=== PATIENT | male | born 1965 | race Caucasian/White ===

== ENCOUNTER 2019-04-22 15:40 | Inpatient (IN) ==
--- NOTE | 2019-04-22 16:05 | Emergency Department Note ---
Disposition Clinical Impression: NSTEMI (non-ST elevated myocardial infarction) Disposition: Admitted As Inpatient Condition: Fair Time of Disposition: 00:34 General Adult HPI - General Chief complaint: ED Chest Pain Stated complaint: Not feeling well Time Seen by Provider: 04/22/19 15:51 Source: patient Limitations: no limitations - History of Present Illness Pain Scale: 10 - Related Data Home Medications Medication Instructions Recorded Confirmed Bupropion HCl [Wellbutrin Xl] 300 mg PO QAM 02/14/16 04/22/19 Cyanocobalamin (Vitamin B-12) 2,000 mcg PO DAILY 02/14/16 04/22/19 [Vitamin B12] Dextroamphetamine/Amphetamine 30 mg PO BID 02/14/16 04/22/19 [Adderall 20 mg Tablet] Gabapentin [Neurontin] 800 mg PO BID 02/14/16 04/22/19 Metoprolol [Lopressor] 100 mg PO BID 02/14/16 04/22/19 Esomeprazole Magnesium [Nexium] 40 mg PO BID 04/22/19 04/22/19 Loratadine [Claritin] 10 mg PO DAILY 04/22/19 04/22/19 Melatonin 10 mg PO HS 04/22/19 04/22/19 Tamsulosin HCl [Flomax] 0.4 mg PO DAILY 04/22/19 04/22/19 Venlafaxine XR (24 HR) [Effexor XR] 37.5 mg PO BID 04/22/19 04/22/19 carBAMazepine [Tegretol] 400 mg PO BID 04/22/19 04/22/19 diazePAM [Valium] 5 mg PO BID 04/22/19 04/22/19 Previous Rx's Medication Instructions Recorded Aspirin 81 mg PO DAILY #30 tab.chew 02/16/16 Allergies Allergy/AdvReac Type Severity Reaction Status Date / Time No Known Allergies Allergy Verified 04/22/19 17:55 Past Medical History - Past Medical History Medical history: Reports: hyperlipidemia Psychiatric history: Reports: bipolar, depression - Social History Smoking Status: Former smoker Smokeless Tobacco Status: No Alcohol use: Reports: none Drug use: Reports: none Physical Exam - General Limitations: no limitations General appearance: alert, in no apparent distress Course Vital Signs Temperature 97.7 F 04/22/19 15:45 Pulse Rate 117 04/22/19 15:45 Respiratory Rate 18 04/22/19 15:45 Blood Pressure 115/75 04/22/19 15:45 O2 Sat by Pulse Oximetry 93 04/22/19 15:45 Temperature 98.1 F 04/22/19 22:18 Pulse Rate 78 04/22/19 22:18 Respiratory Rate 16 04/22/19 22:18 Blood Pressure 133/86 04/22/19 22:18 O2 Sat by Pulse Oximetry 95 04/22/19 22:18 Oxygen Delivery Oxygen Delivery Room Air Medical Decision Making - Lab Data Result diagrams: 04/22/19 16:06 04/22/19 16:06 Lab Results 04/22/19 04/22/19 04/22/19 Range/Units 16:06 16:06 16:06 WBC 6.8 (4.3-11.1) K/mcL RBC 4.70 (4.19-5.50) M/mcL Hgb 14.1 (12.9-16.9) g/dL Hct 42.9 (37.5-50.1) % MCV 91.3 (83.0-100.0) fL MCH 30.0 (28.0-33.3) pg MCHC 32.9 (31.6-35.5) g/dL RDW 14.6 H (11.5-14.5) % Plt Count 248 (140-400) K/mcL MPV 9.4 (9.4-12.4) fL Immature Gran % 0.1 (0-4) % Seg Neutrophils % 70.4 % Lymphocytes % 16.7 % Monocytes % 8.7 % Eosinophils % 3.4 % Basophils % 0.7 % Neutrophils # 4.7 (1.6-8.9) K/mcL Lymphocytes # 1.1 (0.6-4.6) K/mcL Monocytes # 0.6 (0.0-1.3) K/mcL Eosinophils # 0.2 (0.0-0.6) K/mcL Basophils # 0.1 (0.0-0.2) K/mcL PT 10.3 (9.4-12.1) Seconds INR 0.9 APTT 31.3 (26.0-36.0) Seconds D-Dimer (0-500) ng/mLFEU Heparin Anti-Xa, Unfract (0.30-0.70) IU/mL Sodium 138 (136-145) mEq/L Potassium 4.3 (3.5-5.1) mEq/L Chloride 103 (98-107) mEq/L Carbon Dioxide 26 (23-29) mEq/L BUN 17 (6-20) mg/dL Creatinine 1.26 (0.70-1.30) mg/dL Est GFR ( Amer) > 60 (> 60) Est GFR (Non-Af Amer) > 60 (> 60) BUN/Creatinine Ratio 13 (6-26) Glucose 92 (70-105) mg/dL Calculated Osmolality 287 (280-300) Lactic Acid (0.5-2.2) mmol/L Calcium 9.7 (8.6-10.3) mg/dL Troponin I 0.06 H* (< 0.04) ng/mL 04/22/19 04/22/19 04/22/19 Range/Units 16:06 16:06 16:10 WBC (4.3-11.1) K/mcL RBC (4.19-5.50) M/mcL Hgb (12.9-16.9) g/dL Hct (37.5-50.1) % MCV (83.0-100.0) fL MCH (28.0-33.3) pg MCHC (31.6-35.5) g/dL RDW (11.5-14.5) % Plt Count (140-400) K/mcL MPV (9.4-12.4) fL Immature Gran % (0-4) % Seg Neutrophils % % Lymphocytes % % Monocytes % % Eosinophils % % Basophils % % Neutrophils # (1.6-8.9) K/mcL Lymphocytes # (0.6-4.6) K/mcL Monocytes # (0.0-1.3) K/mcL Eosinophils # (0.0-0.6) K/mcL Basophils # (0.0-0.2) K/mcL PT (9.4-12.1) Seconds INR APTT (26.0-36.0) Seconds D-Dimer 294 (0-500) ng/mLFEU Heparin Anti-Xa, Unfract 0.07 L (0.30-0.70) IU/mL Sodium (136-145) mEq/L Potassium (3.5-5.1) mEq/L Chloride (98-107) mEq/L Carbon Dioxide (23-29) mEq/L BUN (6-20) mg/dL Creatinine (0.70-1.30) mg/dL Est GFR ( Amer) (> 60) Est GFR (Non-Af Amer) (> 60) BUN/Creatinine Ratio (6-26) Glucose (70-105) mg/dL Calculated Osmolality (280-300) Lactic Acid 1.7 (0.5-2.2) mmol/L Calcium (8.6-10.3) mg/dL Troponin I (< 0.04) ng/mL Critical Care Time Critical Care Time: Yes Total Critical Care Time: 30 Attestation: The high probability of a clinically significant, sudden or life threatening deterioration of the [] system(s) required my full and direct attention, intervention and personal management. The aggregate critical care time was [] minutes. This time is in addition to time spent performing reported procedures but includes the following: [] Data Review and interpretation [] Patient assessment and monitoring of vital signs [] Documentation [] Medication orders and management Attestation Statement - Attestation Attestation: I reviewed the residents documentation and agree with the residents assessment and plan of care. I have personally had face to face time with the patient. (Brief History, Brief Exam, and MDM) I personally supervised and was present for the bansal/critical portions of the following procedures completed by the imelda tadeo: (add procedures performed here). [id number] time provided Triage note and vital signs reviewed by me. I attest to supervised the resident physician's interpretation of the ECG. Patient evaluated in conjunction with the resident physician Dr. Hager
--- NOTE | 2019-04-22 16:13 | Emergency Department Note ---
Disposition Clinical Impression: NSTEMI (non-ST elevated myocardial infarction) Disposition: Admitted As Inpatient Condition: Fair Forms: ED Satisfaction Letter Time of Disposition: 17:11 General Adult HPI - General Chief complaint: ED Chest Pain Stated complaint: Not feeling well Time Seen by Provider: 04/22/19 15:51 Source: patient Mode of arrival: ambulatory Limitations: no limitations Nursing Notes Reviewed: Yes Vital Signs Reviewed: Yes - History of Present Illness HPI Narrative: Patient is a 53-year-old male that presents emergency Department with reports of generally not feeling well. Patient states that he is also been having chest pain, shortness of breath, sweatiness and belching over the past 2-3 days. Patient states this is very similar to when he had a prior heart attack and stent placement. Patient states that was approximately one year ago. Patient also states that he does have a history of multiple blood clots throughout his body including blood clot in his lung. Patient states that he started to become concerned when he had repeat symptoms of his prior cardiac event. Patient states that he has not had any vomiting, diarrhea or abdominal pain. Patient also states that he was switched from Klonopin to Valium approximately one week ago and since then has not been feeling like his usual self. Patient states that the pain is located in the left side of his chest and will move across to the right and into his right arm. Patient also states that he has increased pain when he takes deep breath. Pain Scale: 10 - Related Data Home Medications Medication Instructions Recorded Confirmed Bupropion HCl [Wellbutrin Xl] 300 mg PO QAM 02/14/16 02/14/16 Cyanocobalamin (Vitamin B-12) 2,000 mcg PO DAILY 02/14/16 02/14/16 [Vitamin B12] Dextroamphetamine/Amphetamine 20 mg PO BID 02/14/16 02/14/16 [Adderall 20 mg Tablet] Duloxetine HCl [Cymbalta] 60 mg PO HS 02/14/16 02/14/16 Esomeprazole Magnesium [Nexium] 40 mg PO BID 02/14/16 02/14/16 Gabapentin [Neurontin] 800 mg PO HS 02/14/16 02/14/16 Metoprolol [Lopressor] 100 mg PO BID 02/14/16 02/14/16 clonazePAM [Klonopin] 1 mg PO TID 02/14/16 02/14/16 lamoTRIgine [Lamictal] 100 mg PO QAM 02/14/16 02/14/16 lamoTRIgine [Lamictal] 200 mg PO HS 02/14/16 02/14/16 Previous Rx's Medication Instructions Recorded Albuterol Sulfate [Ventolin Hfa] 18 gm IH Q4HR PRN #1 hfa.aer.ad 02/16/16 Aspirin 81 mg PO DAILY #30 tab.chew 02/16/16 Allergies Allergy/AdvReac Type Severity Reaction Status Date / Time No Known Allergies Allergy Verified 02/14/16 15:22 All systems ED: reviewed and negative except as stated. Constitutional: Denies: fever Cardiovascular: Reports: chest pain Respiratory: Reports: dyspnea Gastrointestinal: Reports: nausea. Denies: abdominal pain, vomiting, diarrhea Musculoskeletal: Denies: neck pain Neurological: Denies: weakness, numbness, paresthesias Past Medical History - Past Medical History Medical history: Reports: hyperlipidemia Psychiatric history: Reports: bipolar, depression - Social History Smoking Status: Former smoker Smokeless Tobacco Status: No Alcohol use: Reports: none Drug use: Reports: none Physical Exam - General Limitations: no limitations General appearance: alert, in no apparent distress - Head Head exam: atraumatic, normocephalic - Eye Eye exam: Present: normal appearance, EOMI - Neck Neck exam: Present: normal inspection, full ROM, trachea midline - Respiratory Respiratory exam: Present: normal lung sounds bilaterally. Absent: respiratory distress, wheezes - Cardiovascular Cardiovascular exam: Present: normal rhythm, tachycardia, normal heart sounds, +S1, +S2 - Abdominal Exam Abdominal exam: Present: soft, Non-Tender, normal bowel sounds - Neurological Exam Neurological exam: Present: alert, oriented X3 - Psychiatric Psychiatric exam: Present: normal affect, normal mood - Skin Skin exam: Present: warm, dry, intact Course Vital Signs Temperature 97.7 F 04/22/19 15:45 Pulse Rate 117 04/22/19 15:45 Respiratory Rate 18 04/22/19 15:45 Blood Pressure 115/75 04/22/19 15:45 O2 Sat by Pulse Oximetry 93 04/22/19 15:45 Temperature 97.7 F 04/22/19 15:45 Pulse Rate 106 04/22/19 16:17 Respiratory Rate 18 04/22/19 16:17 Blood Pressure 148/87 04/22/19 16:17 O2 Sat by Pulse Oximetry 98 04/22/19 16:17 Oxygen Delivery Oxygen Delivery Room Air Medical Decision Making - MDM Narrative Medical decision making narrative: Due the patient's into the emergency Department with reports of chest pain, shortness of breath and diaphoresis in the setting of prior cardiac history and blood clots obtain basic laboratory testing including a d-dimer. The patient was deemed a positive sepsis screen at triage. However the patient was only tachycardic. Was not tachypenic, hypotensive, febrile and no white count had been obtained at that time to identify the patient to be a positive sepsis screen. She does not have an elevated white count. Patient does not have an infectious etiology. Do not feel the patient is septic. Patient did have an elevated troponin of 0.06. Patient given aspirin, nitroglycerin was started on heparin drip. Patient will be admitted hospital for an STEMI. Spoke the admitting hospitalist Dr. morton and he is except the patient their service. Patient be admitted to this time for further evaluation and management. - Medical Records Medical records reviewed: Yes I reviewed the patient's medical records. - Lab Data Lab results reviewed: Yes I reviewed the patient's lab results. Result diagrams: 04/22/19 16:06 04/22/19 16:06 Lab Results 04/22/19 04/22/19 04/22/19 Range/Units 16:06 16:06 16:06 WBC 6.8 (4.3-11.1) K/mcL RBC 4.70 (4.19-5.50) M/mcL Hgb 14.1 (12.9-16.9) g/dL Hct 42.9 (37.5-50.1) % MCV 91.3 (83.0-100.0) fL MCH 30.0 (28.0-33.3) pg MCHC 32.9 (31.6-35.5) g/dL RDW 14.6 H (11.5-14.5) % Plt Count 248 (140-400) K/mcL MPV 9.4 (9.4-12.4) fL Immature Gran % 0.1 (0-4) % Seg Neutrophils % 70.4 % Lymphocytes % 16.7 % Monocytes % 8.7 % Eosinophils % 3.4 % Basophils % 0.7 % Neutrophils # 4.7 (1.6-8.9) K/mcL Lymphocytes # 1.1 (0.6-4.6) K/mcL Monocytes # 0.6 (0.0-1.3) K/mcL Eosinophils # 0.2 (0.0-0.6) K/mcL Basophils # 0.1 (0.0-0.2) K/mcL PT 10.3 (9.4-12.1) Seconds INR 0.9 APTT 31.3 (26.0-36.0) Seconds D-Dimer (0-500) ng/mLFEU Sodium 138 (136-145) mEq/L Potassium 4.3 (3.5-5.1) mEq/L Chloride 103 (98-107) mEq/L Carbon Dioxide 26 (23-29) mEq/L BUN 17 (6-20) mg/dL Creatinine 1.26 (0.70-1.30) mg/dL Est GFR ( Amer) > 60 (> 60) Est GFR (Non-Af Amer) > 60 (> 60) BUN/Creatinine Ratio 13 (6-26) Glucose 92 (70-105) mg/dL Calculated Osmolality 287 (280-300) Lactic Acid (0.5-2.2) mmol/L Calcium 9.7 (8.6-10.3) mg/dL Troponin I 0.06 H* (< 0.04) ng/mL 04/22/19 04/22/19 Range/Units 16:06 16:06 WBC (4.3-11.1) K/mcL RBC (4.19-5.50) M/mcL Hgb (12.9-16.9) g/dL Hct (37.5-50.1) % MCV (83.0-100.0) fL MCH (28.0-33.3) pg MCHC (31.6-35.5) g/dL RDW (11.5-14.5) % Plt Count (140-400) K/mcL MPV (9.4-12.4) fL Immature Gran % (0-4) % Seg Neutrophils % % Lymphocytes % % Monocytes % % Eosinophils % % Basophils % % Neutrophils # (1.6-8.9) K/mcL Lymphocytes # (0.6-4.6) K/mcL Monocytes # (0.0-1.3) K/mcL Eosinophils # (0.0-0.6) K/mcL Basophils # (0.0-0.2) K/mcL PT (9.4-12.1) Seconds INR APTT (26.0-36.0) Seconds D-Dimer 294 (0-500) ng/mLFEU Sodium (136-145) mEq/L Potassium (3.5-5.1) mEq/L Chloride (98-107) mEq/L Carbon Dioxide (23-29) mEq/L BUN (6-20) mg/dL Creatinine (0.70-1.30) mg/dL Est GFR ( Amer) (> 60) Est GFR (Non-Af Amer) (> 60) BUN/Creatinine Ratio (6-26) Glucose (70-105) mg/dL Calculated Osmolality (280-300) Lactic Acid 1.7 (0.5-2.2) mmol/L Calcium (8.6-10.3) mg/dL Troponin I (< 0.04) ng/mL - EKG Data EKG #1 EKG attestation: Yes I reviewed and interpreted this EKG. EKG results narrative: EKG shows a sinus tachycardia at a rate of 120 beats from it, GA interval 18, QRS duration 107, QTc of 387. No evidence of STEMI on EKG. This is compared to a prior EKG on 02/15/16.
[2019-04-22 16:19] LABS: Basophils # 0.1 K/mcL (0.0-0.2); Basophils % 0.7 %; Eosinophils # 0.2 K/mcL (0.0-0.6); Eosinophils % 3.4 %; Hematocrit 42.9 % (37.5-50.1); Hemoglobin 14.1 g/dL (12.9-16.9); Immature Granulocytes % 0.1 % (0-4); Lymphocytes # 1.1 K/mcL (0.6-4.6); Lymphocytes % 16.7 %; Mean Corpuscular HGB Conc 32.9 g/dL (31.6-35.5); Mean Corpuscular Volume 91.3 fL (83.0-100.0); Mean Platelet Volume 9.4 fL (9.4-12.4); Monocytes # 0.6 K/mcL (0.0-1.3); Monocytes % 8.7 %; Neutrophils # 4.7 K/mcL (1.6-8.9); Platelet Count 248 K/mcL (140-400); Red Cell Distribution Width 14.6 % (11.5-14.5); Segmented Neutrophils % 70.4 %; White Blood Count 6.8 K/mcL (4.3-11.1)
[2019-04-22 16:30] LABS: INR 0.9; Prothrombin Time 10.3 Seconds (9.4-12.1)
[2019-04-22 16:32] LABS: Activated Partial Thrombo Time 31.3 Seconds (26.0-36.0)
[2019-04-22 16:40] LABS: BUN/Creatinine Ratio 13 (6-26); Blood Urea Nitrogen 17 mg/dL (6-20); Calcium 9.7 mg/dL (8.6-10.3); Carbon Dioxide 26 mEq/L (23-29); Chloride 103 mEq/L (98-107); Glucose 92 mg/dL (70-105); Osmolality,Calculated 287 (280-300); Potassium 4.3 mEq/L (3.5-5.1); Sodium 138 mEq/L (136-145); eGFR For African Americans > 60 (> 60); eGFR For Non-African Americans > 60 (> 60)
[2019-04-22 16:46] LABS: Troponin I 0.06 ng/mL (< 0.04)
[2019-04-22] MEDS ORDERED: Aspirin 81 MG TAB.CHEW PO ONE (16:50)
[2019-04-22] MEDS ORDERED: *HR* Heparin 5,000 UNIT/ML VIAL IVP PRN ×2 (16:59)
[2019-04-22] MEDS ORDERED: *HR* Heparin 5,000 UNIT/ML VIAL IVP ONE (16:59)
[2019-04-22] MEDS ORDERED: Ondansetron ODT 4 MG TAB.RAPDIS SL PRN (17:25)
[2019-04-22] MEDS ORDERED: Naloxone 0.4 MG/ML INJ IVP PRN (17:25)
[2019-04-22] MEDS ORDERED: *HR* Promethazine 25 MG/ML VIAL IVP PRN (17:25)
[2019-04-22] MEDS: Nitroglycerin 0.4 MG TAB.SUBL SL SCH ×3 (17:33→22:03)
[2019-04-22] MEDS: Heparin 25,000 UNIT/250 ML D5W 25,000 UNIT/250 ML IV.SOLN IVC SCH (17:42)
--- NOTE | 2019-04-22 18:13 | Internal Med History&Physical ---
Date of Encounter: 04/22/19 Time of Encounter: 18:00 Internal Medicine - H&P: HPI Chief complaint: Chest pressure Admitted From: Home Plans for Post Hospital Care: Home History of present illness: Mr. Esqueda is a 53 year old male with hx of CAD s/p PCI with stent in 2018 presents with chest pressure. Patient says that 1 hour prior to presentation he began to feel chest pressure that admits to feeling generalized malaise over the last 2-3 days. Today was having chest pressure similar to his symptoms when he had a heart attack in 2018. Went to his mom's house and started feeling short of breath and broke out in a sweat so called EMS. During time of interview, patient endorsed continued chest pressure and shortness of breath. Denies orthopnea, PND, or lower extremity edema. Pain on the left side of his chest and radiating down his right arm. Not relieved by nitroglycerin. In the ED, sinus tach to 122. All other vitals stable. Troponin elevation to 0.06. EKG without ischemic changes. Admitted to medicine. Past Med Surg Social Fam HX - Past Medical History Medical history: hyperlipidemia Additional medical history: Neuropathy. Psychiatric history: bipolar, depression - Social History Smoking Status: Former smoker Smokeless Tobacco Status: No Alcohol use: none Drug use: none - Family History Mother Living Status: Still Living Hx Family Respiratory Disorders: Yes Father Living Status: Still Living Hx Family Cardiac Disorders: Yes (Tripple Bi-pass) Internal Medicine - H&P: Meds Bupropion HCl [Wellbutrin Xl] 300 mg PO QAM 02/14/16 [History] Cyanocobalamin (Vitamin B-12) [Vitamin B12] 2,000 mcg PO DAILY 02/14/16 [History] Dextroamphetamine/Amphetamine [Adderall 20 mg Tablet] 20 mg PO BID 02/14/16 [History] Duloxetine HCl [Cymbalta] 60 mg PO HS 02/14/16 [History] Esomeprazole Magnesium [Nexium] 40 mg PO BID 02/14/16 [History] Gabapentin [Neurontin] 800 mg PO HS 02/14/16 [History] Metoprolol [Lopressor] 100 mg PO BID 02/14/16 [History] clonazePAM [Klonopin] 1 mg PO TID 02/14/16 [History] lamoTRIgine [Lamictal] 100 mg PO QAM 02/14/16 [History] lamoTRIgine [Lamictal] 200 mg PO HS 02/14/16 [History] Albuterol Sulfate [Ventolin Hfa] 18 gm IH Q4HR PRN #1 hfa.aer.ad 02/16/16 [Rx] Aspirin 81 mg PO DAILY #30 tab.chew 02/16/16 [Rx] Allergy/AdvReac Type Severity Reaction Status Date / Time No Known Allergies Allergy Verified 04/22/19 17:55 All Systems PM: A 10-system review of systems was performed and is negative for pertinent findings except as documented above in the HPI. Review of systems: General: Fevers / Chills / Weight loss / Night sweats Eyes: Blurry Vision / Change in Vision HENT: Ear Pain / Ear Drainage / Rhinorrhea / Throat Pain / Lymphadenopathy Cardiovascular: Chest Pain / Palpatations / Orthopnea / MCKENNA / Weight gain Lungs: Dyspnea / Wheezing / Cough / Sputum production / Pleurisy Abdomen: Abdomen pain / Abdominal distention / Nausea / Vomiting / Diarrhea / Const : Dysuria / Urinary Frequency / Urinary Urgency / Hematuria Extremities: LE edema / Ext pain / Ext erythema Skin: Rashes / Abrasions / Contusions Psych: Hallucinations / Anxiety / Depression Neuro: Weakness / Numbness / Tingling / Facial Droop / Dysphagia - Constitutional Vitals: Temp Pulse Resp BP Pulse Ox 97.7 F 122 16 101/80 93 04/22/19 15:45 04/22/19 17:53 04/22/19 17:53 04/22/19 17:53 04/22/19 17:53 Exam: General: Ill-appearing and in no acute distress HEENT: No erythema of posterior pharynx. No exudates. Lymphatics: No mandibular or cervical lymphadenopathy Cardiovascular: RRR. No murmurs. No chest wall tenderness. Lungs: Clear to auscelltation bilaterally. Regular chest rise. Abdomen: Non-tender. No rebound or gaurding. Nl bowel sounds. Extremities: No edema. 2+ pulses radial and pedal pulses Skin: No rahses, abrasions, or contusions. Nl cap refill. Psych: Nl attention. A&Ox3 Neuro: key maker II-XII intact. 5/5 strength. Sensation to light touch and pinprick intact. Internal Med - H&P Results - Labs CBC & Chem 7: 04/22/19 16:06 04/22/19 16:06 Labs: Short CBC 04/22/19 Range/Units 16:06 WBC 6.8 (4.3-11.1) K/mcL Hgb 14.1 (12.9-16.9) g/dL Hct 42.9 (37.5-50.1) % Plt Count 248 (140-400) K/mcL Neutrophils # 4.7 (1.6-8.9) K/mcL BMP 04/22/19 16:06 Sodium 138 Potassium 4.3 Chloride 103 Carbon Dioxide 26 BUN 17 Creatinine 1.26 Glucose 92 Calcium 9.7 Cardiac Enzymes 04/22/19 Range/Units 16:06 Troponin I 0.06 H* (< 0.04) ng/mL - Impressions ITS Impressions Chest X-Ray 04/22/19 15:53 IMPRESSION: No acute airspace disease identified. D/ / Ryan Elizondo / Ryan Elizondo Interpreting Provider: Ryan Elizondo - Assessment and Plan (1) NSTEMI (non-ST elevated myocardial infarction) Current Visit: Yes Status: Acute Assessment and plan: Patient with hx of CAD s/p PCI with stent in 2018 presents with chest pressure in the setting of sinus tachycardia, unremarkable physical exam, she will elevation to 0.06, and EKG without ischemic changes. -Initial concern for PE given sinus tachycardia but d-dimer only to 294. -Likely another primary ischemic event, NSTEMI type I, in a high-risk patient -Started on heparin drip in the ED and currently hemodynamically stable PLAN: - Consult to cardiology - will make NPO@MN for likely LHC - Troponin q6 - Heparin ggt - S/p ASA 324mg. ASA 81mg qd thereafter - Metoprolol tartrate 50mg q6 (home dose 100mg bid) - Nitrolycerin and morphine prn for chest pain/pressure - Will need to request records from primary turning machine operator helper (2) CAD (coronary artery disease) Current Visit: Yes Status: Acute Assessment and plan: Had an IN in 2018 status post PCI with stent placement. Follows with a turning machine operator helper at an outside facility. - Will need to request records from outside facility Qualifiers: Coronary Disease-Associated Artery/Lesion type: pic[place]une artery [place] vs. transplanted heart: picayune heart Associated angina: without angina Qualified Code(s): I25.10 - Atherosclerotic heart disease of pic[place] coronary artery without angina pectoris (3) Sinus tachycardia Current Visit: Yes Status: Acute Assessment and plan: Initial concern for PE given sinus tachycardia but d-dimer only to 294. - Metoprolol 50mg q6 for NSTEMI management - Telemetry (4) Medical non-compliance Current Visit: Yes Status: Acute Assessment and plan: Unclear how complaint patient has been with cardiac package of medications. Since he has not been taking a statin. - Encourage compliance
[2019-04-22] MEDS ORDERED: Morphine Sulfate 2 MG/ML SYRINGE IVP PRN (18:21)
[2019-04-22] MEDS ORDERED: Melatonin 3 MG TABLET PO PRN (20:14)
[2019-04-22] MEDS: carBAMazepine 200 MG TABLET PO SCH (22:16)
[2019-04-22] MEDS: Gabapentin 400 MG CAPSULE PO SCH (22:17)
[2019-04-22] MEDS: diazePAM 5 MG TABLET PO PRN (22:17)
[2019-04-23 06:11] LABS: Basophils # 0.1 K/mcL (0.0-0.2); Basophils % 1.4 %; Eosinophils # 0.3 K/mcL (0.0-0.6); Eosinophils % 5.9 %; Hematocrit 40.6 % (37.5-50.1); Hemoglobin 13.2 g/dL (12.9-16.9); Immature Granulocytes % 0.3 % (0-4); Mean Corpuscular HGB Conc 32.5 g/dL (31.6-35.5); Mean Corpuscular Hemoglobin 29.4 pg (28.0-33.3); Mean Corpuscular Volume 90.4 fL (83.0-100.0); Mean Platelet Volume 9.5 fL (9.4-12.4); Monocytes # 0.6 K/mcL (0.0-1.3); Monocytes % 10.1 %; Neutrophils # 2.8 K/mcL (1.6-8.9); Platelet Count 228 K/mcL (140-400); Red Blood Count 4.49 M/mcL (4.19-5.50); Segmented Neutrophils % 48.3 %; White Blood Count 5.7 K/mcL (4.3-11.1)
[2019-04-23 06:32] LABS: BUN/Creatinine Ratio 16 (6-26); Blood Urea Nitrogen 18 mg/dL (6-20); Calcium 10.1 mg/dL (8.6-10.3); Carbon Dioxide 27 mEq/L (23-29); Chloride 106 mEq/L (98-107); Glucose 97 mg/dL (70-105); Magnesium 2.3 mg/dL (1.6-2.6); Osmolality,Calculated 296 (280-300); Potassium 4.3 mEq/L (3.5-5.1); Sodium 142 mEq/L (136-145); eGFR For African Americans > 60 (> 60); eGFR For Non-African Americans > 60 (> 60)
--- NOTE | 2019-04-23 08:10 | Cardiology Consult Note ---
<Cami Bruce - Last Filed: 04/23/19 10:39> Date of Encounter: 04/23/19 Time of Encounter: 10:15 Assessment and Plan (1) NSTEMI (non-ST elevated myocardial infarction) Current Visit: Yes Status: Acute Patient had mildly elevated troponins 0.06 > 0.04 > 0.03. -Had previous cardiac catheterization approximately a year ago in [place] -There is a records request ordered for information regarding previous heart cath. -Per patient, there was an unstented coronary artery seen on last cath which had 80% blockage. (2) Essential hypertension Current Visit: No Status: Chronic Patient's blood pressure has been elevated this morning, at 180/110 and 178/118. Received morning dose of metoprolol 50 mg. Continuing to monitor. Discussion w patient/family: The assessment and plan as outlined above was discussed with the patient and/or family members who expressed understanding and agreement. All questions were answered. Thank you for involving us in the care of your patient. Please call with any questions. History of Present Illness Consult date: 04/22/19 Requesting physician: Taqueria Worley Consult reason: NSTEMI Chief complaint: chest pressure History of present illness: Mr. Esqueda is a 53 year old male presenting with chest pressure in context of CAD s/p PCI with stent in 2018. He also has a history of multiple blood clots throughout body including pulmonary embolism. He was found to additionally have elevated troponins on presentation. Yesterday evening, he experienced left-sided chest pressure which radiated across to right chest and down right arm; these symptoms were very similar to those he had during his 2018 heart attack. He went to his mother's house and began feeling dyspneic and diaphoretic. After an hour of symptoms, he called EMS. In the ED, he continued to have chest pain which worsened during deep breaths. He denied vomiting, diarrhea, abdominal pain but reported he had been having chest pain, dyspnea, diaphoresis, and increased belching over the previous 2-3 days. He showed an elevated troponin of 0.06 and was given aspirin, nitroglycerin, and was started on a heparin drip. D-dimer was negative. ECG showed sinus tachycardia of 120 bpm. There was no evidence of STEMI on electrocardiogram. CXR showed no acute airspace disease. Patient reported to nurse that nitroglycerin was worsening his chest pain. Troponins are trending downward 0.06 > 0.04 > 0.03. Blood pressure this morning has been elevated at 180/110 > 178/118. Past Med Surg Social Fam HX - Past Medical History Medical history: hyperlipidemia Additional medical history: Neuropathy. Psychiatric history: bipolar, depression - Past Surgical History Additional surgical history: left elbow sx, right knee sx. - Social History Smoking Status: Former smoker Smokeless Tobacco Status: No Alcohol use: none Drug use: none - Family History Mother Living Status: Still Living Hx Family Respiratory Disorders: Yes Father Living Status: Still Living Hx Family Cardiac Disorders: Yes (Tripple Bi-pass) Medications and Allergies Bupropion HCl [Wellbutrin Xl] 300 mg PO QAM 02/14/16 [History] Cyanocobalamin (Vitamin B-12) [Vitamin B12] 2,000 mcg PO DAILY 02/14/16 [History] Dextroamphetamine/Amphetamine [Adderall 20 mg Tablet] 30 mg PO BID 02/14/16 [History] Gabapentin [Neurontin] 800 mg PO BID 02/14/16 [History] Metoprolol [Lopressor] 100 mg PO BID 02/14/16 [History] Aspirin 81 mg PO DAILY #30 tab.chew 02/16/16 [Rx] Esomeprazole Magnesium [Nexium] 40 mg PO BID 04/22/19 [History] Loratadine [Claritin] 10 mg PO DAILY 04/22/19 [History] Melatonin 10 mg PO HS 04/22/19 [History] Tamsulosin HCl [Flomax] 0.4 mg PO DAILY 04/22/19 [History] Venlafaxine XR (24 HR) [Effexor XR] 37.5 mg PO BID 04/22/19 [History] carBAMazepine [Tegretol] 400 mg PO BID 04/22/19 [History] diazePAM [Valium] 5 mg PO BID 04/22/19 [History] Allergy/AdvReac Type Severity Reaction Status Date / Time No Known Allergies Allergy Verified 04/22/19 17:55 All Systems Review: The remainder of the systems were reviewed and are negative - Constitutional Constitutional: headache(s), no frequent falls - EENT Eyes: blurred vision Ears: bilateral: hearing loss (muffled) - Cardiovascular Cardiovascular: chest pain at rest (radiates to back), chest pain with exertion, diaphoresis, dyspnea at rest, dyspnea on exertion, radiating jaw, neck or arm pain, no leg edema - Respiratory Respiratory: dyspnea - Gastrointestinal Gastrointestinal: constipation, no abdominal pain, no diarrhea, no nausea - Genitourinary Genitourinary: no dysuria - Musculoskeletal Musculoskeletal: back pain - Neurological Neurological: no focal weakness, no numbness, no tingling - Psychiatric Psychiatric: anxiety Physical Examination Vital Signs, Last 4 Hours Temp Pulse Resp BP Pulse Ox 04/23/19 07:34 178/118 04/23/19 07:23 97.5 F L 67 16 180/110 97 Other: GENERAL: alert, answers questions appropriately, in no acute distress EYES: clear sclerae, anicteric, pupils equal and reactive to light HENT: normocephalic, atraumatic. Moist mucosa, some missing teeth. CV: regular rate and rhythm, no murmurs. RESPIRATORY/CHEST: clear to auscultation bilaterally, no wheezing, rhonchi, or rales. Tender to palpation over left upper chest GI: epigastric tenderness. Soft, nondistended. Normal bowel sounds EXTREMITIES: warm, dry. Nonedematous, acyanotic. Peripheral pulses 2+/4. Capilla ry refill <2 sec. Results 04/23/19 05:43 04/23/19 05:43 Lab Results 04/22/19 04/22/19 04/22/19 16:06 16:06 16:06 WBC 6.8 Hgb 14.1 Hct 42.9 Plt Count 248 INR 0.9 APTT 31.3 D-Dimer Sodium 138 Potassium 4.3 Chloride 103 Carbon Dioxide 26 BUN 17 Creatinine 1.26 Glucose 92 Calcium 9.7 Magnesium Troponin I 0.06 H* 04/22/19 04/22/19 04/23/19 16:06 23:39 05:43 WBC 5.7 Hgb 13.2 Hct 40.6 Plt Count 228 INR APTT D-Dimer 294 Sodium Potassium Chloride Carbon Dioxide BUN Creatinine Glucose Calcium Magnesium Troponin I 0.04 H* 04/23/19 04/23/19 05:43 05:43 WBC Hgb Hct Plt Count INR APTT D-Dimer Sodium 142 Potassium 4.3 Chloride 106 Carbon Dioxide 27 BUN 18 Creatinine 1.11 Glucose 97 Calcium 10.1 Magnesium 2.3 Troponin I 0.03 Consult Discharge Plan - Plan Referrals: Negin Lock MD [Primary Care Provider] - <Eryn Read - Last Filed: 04/23/19 11:53> Date of Encounter: 04/23/19 - Attending Attestation I examined this patient and my medical decision-making was reviewed with the Resident Physician. I agree with the documented findings, disposition and treatment plan as described except to the extent set forth below. 53-year-old male recent PCI to his distal RCA a year ago at an outside hospital for an inferior ST elevation myocardial infarction. Patient presents to [facility] with complaints of chest pain similar to what he had prior to his [place]. Patient has mild elevated troponin withchanges on his EKG. Records were obtained from outside hospital and apparently patient has proximal 50% disease in the circumflex with 70-80% apical LAD disease as well. The setting of his episode of chest pain; he had prior to his IL and mild elevation in troponins I do believe an LHC is reasonable. Risks benefits and alternatives were discussed with the patient and he agrees to proceed. Assessment and Plan Discussion w patient/family: The assessment and plan as outlined above was discussed with the patient and/or family members who expressed understanding and agreement. All questions were answered. Thank you for involving us in the care of your patient. Please call with any questions. History of Present Illness History of present illness: Mr. Esqueda is a 53 year old male All Systems Review: The remainder of the systems were reviewed and are negative Physical Examination Vital Signs, Last 4 Hours Temp Pulse Resp BP Pulse Ox 04/23/19 11:07 98.0 F 71 17 138/93 96 Results 04/23/19 05:43 04/23/19 05:43 Lab Results 04/22/19 04/22/19 04/22/19 16:06 16:06 16:06 WBC 6.8 Hgb 14.1 Hct 42.9 Plt Count 248 INR 0.9 APTT 31.3 D-Dimer Sodium 138 Potassium 4.3 Chloride 103 Carbon Dioxide 26 BUN 17 Creatinine 1.26 Glucose 92 Calcium 9.7 Magnesium Troponin I 0.06 H* 04/22/19 04/22/19 04/23/19 16:06 23:39 05:43 WBC 5.7 Hgb 13.2 Hct 40.6 Plt Count 228 INR APTT D-Dimer 294 Sodium Potassium Chloride Carbon Dioxide BUN Creatinine Glucose Calcium Magnesium Troponin I 0.04 H* 04/23/19 04/23/19 05:43 05:43 WBC Hgb Hct Plt Count INR APTT D-Dimer Sodium 142 Potassium 4.3 Chloride 106 Carbon Dioxide 27 BUN 18 Creatinine 1.11 Glucose 97 Calcium 10.1 Magnesium 2.3 Troponin I 0.03
[2019-04-23] MEDS: carBAMazepine 200 MG TABLET PO SCH ×2 (08:30→20:26)
[2019-04-23] MEDS: Gabapentin 400 MG CAPSULE PO SCH ×2 (08:30→20:25)
[2019-04-23] MEDS: Aspirin 81 MG TAB.CHEW PO SCH (08:30)
[2019-04-23] MEDS: Acetaminophen 325 MG TABLET PO PRN (08:30)
[2019-04-23] MEDS: BuPROPion XL (24 HR) 150 MG TABLET PO SCH (08:30)
[2019-04-23] MEDS: diazePAM 5 MG TABLET PO PRN ×2 (08:37→22:02)
[2019-04-23] MEDS ORDERED: Venlafaxine XR (24 HR) 37.5 MG CAP.ER.24H PO SCH (09:00)
[2019-04-23] MEDS: Metoprolol 100 MG TABLET PO SCH ×2 (11:14→20:25)
--- NOTE | 2019-04-23 14:31 | Internal Med Progress Note ---
Hospitalist Progress Note - Encounter Date of Encounter: 04/23/19 Time of Encounter: 11:10 - Subjective Interval History: Patient was seen this morning, he denied any chest pain, shortness of breath or palpitation. He denied nausea/vomiting or abdominal pain. - Exam Vitals: Temp Pulse Resp BP Pulse Ox 98.0 F 71 17 138/93 96 04/23/19 11:07 04/23/19 11:07 04/23/19 11:07 04/23/19 11:07 04/23/19 11:07 Exam: General: Ill-appearing and in no acute distress HEENT: No erythema of posterior pharynx. No exudates. Lymphatics: No mandibular or cervical lymphadenopathy Cardiovascular: RRR. No murmurs. No chest wall tenderness. Lungs: Clear to auscelltation bilaterally. Regular chest rise. Abdomen: Non-tender. No rebound or gaurding. Nl bowel sounds. Extremities: No edema. 2+ pulses radial and pedal pulses Skin: No rahses, abrasions, or contusions. Nl cap refill. Psych: Nl attention. 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 5/5 strength. Sensation to light touch and pinprick intact. - Assessment and Plan (1) NSTEMI (non-ST elevated myocardial infarction) Current Visit: Yes Status: Acute (2) CAD (coronary artery disease) Current Visit: Yes Status: Acute (3) Medical non-compliance Current Visit: Yes Status: Acute (4) Sinus tachycardia Current Visit: Yes Status: Acute - Summary of Assessment and Plan Summary of Assessment and Plan: 53-year-old male with history of CAD status post PCI, ADHD, bipolar disorder who came into the hospital due to chest pain. His symptoms are managed as following: NSTEMI: - Troponin peaked to 0.04, EKG with no acute ischemic changes. Currently pain- free. - On heparin drip, aspirin, BB, Lipitor. Cardiology is consulted, plans for left heart catheterization. bipolar disorder: Continue home medication ADHD: Continue home medication DVT prophylaxis: On heparin drip - Time Spent with Patient Total time spent is greater than 50% in coordination of care (as documented) at patient's floor/unit and/or counseling patient: Plan of Care Discussed with: patient Internal Medicine: Result - Labs CBC & Chem 7: 04/23/19 05:43 04/23/19 05:43 Labs: Short CBC 04/22/19 04/23/19 Range/Units 16:06 05:43 WBC 6.8 5.7 (4.3-11.1) K/mcL Hgb 14.1 13.2 (12.9-16.9) g/dL Hct 42.9 40.6 (37.5-50.1) % Plt Count 248 228 (140-400) K/mcL Neutrophils # 4.7 2.8 (1.6-8.9) K/mcL BMP 04/22/19 04/23/19 16:06 05:43 Sodium 138 142 Potassium 4.3 4.3 Chloride 103 106 Carbon Dioxide 26 27 BUN 17 18 Creatinine 1.26 1.11 Glucose 92 97 Calcium 9.7 10.1 Cardiac Enzymes 04/22/19 04/22/19 04/23/19 Range/Units 16:06 23:39 05:43 Troponin I 0.06 H* 0.04 H* 0.03 (< 0.04) ng/mL - ABG Interpretation ABG results: PT/INR, D-dimer PT 10.3 Seconds (9.4-12.1) 04/22/19 16:06 D-Dimer 294 ng/mLFEU (0-500) 04/22/19 16:06 - Impressions Impressions Chest X-Ray 04/22/19 15:53 IMPRESSION: No acute airspace disease identified. D/ / Ryan Elizondo / Ryan Elizondo Interpreting Provider: Ryan Elizondo Consult Discharge Plan - Plan Referrals: Negin Lock MD [Primary Care Provider] - (2) CAD (coronary artery disease) Qualifiers: Coronary Disease-Associated Artery/Lesion type: [place] artery [place] vs. transplanted heart: [place] heart Associated angina: without angina Qualified Code(s): I25.10 - Atherosclerotic heart disease of [place] coronary artery without angina pectoris
[2019-04-23] MEDS: Heparin 25,000 UNIT/250 ML D5W 25,000 UNIT/250 ML IV.SOLN IVC SCH (15:41)
[2019-04-23] MEDS ORDERED: 0.9 % Sodium Chloride 1,000 ML ONE ×2 (15:49→15:50)
[2019-04-23] MEDS ORDERED: Heparin 1,000 UNITS/500 mL 500 ML ONE (15:49)
[2019-04-23] MEDS ORDERED: *HR* Heparin 10,000 UNIT/10 ML VIAL ONE (15:49)
[2019-04-23] MEDS ORDERED: Nitroglycerin 1,000 MCG/10 ML VIAL IV ONE (15:49)
[2019-04-23] MEDS ORDERED: Verapamil 5 MG/2 ML VIAL ONE (16:42)
[2019-04-23] MEDS ORDERED: *HR* FentaNYL (PF) 100 MCG/2 ML VIAL ONE (16:44)
[2019-04-23] MEDS ORDERED: *HR* Midazolam HCl 2 MG/2 ML VIAL ONE ×2 (16:44→16:57)
--- NOTE | 2019-04-23 16:48 | Pre-Sedation Evaluation ---
Pre-sedation evaluation - Pre-sedation checklist Date of procedure: 04/23/19 Procedure: [facility] Recent Vitals: Last Vital Signs Temp 97.6 F 04/23/19 15:51 Pulse 70 04/23/19 15:51 Resp 16 04/23/19 15:51 BP 146/99 04/23/19 15:51 Pulse Ox 96 04/23/19 15:51 H&P (including ROS) documented in medical record: Yes Previous reaction to sedatives/anesthetics: No Dietary Status: No solid food in preceding 4 hrs and no liquid in preceding 2 hrs Dentition: No loose teeth or bridges ASA Classification *see protocol: CLASS II-Mild systemic disease Plan of Care: Pt appropriate candidate for procedure/moderate/conscious sedation, Risks/benefits of procedure/sedation discussed w/ patient/family Cardiac Registry (Cardio Only) - Functional Capacity Functional Capacity: >=4 METS with symptoms - Clincal Frailty Scale Clinical Frailty Scale: Managing Well
[2019-04-23] MEDS ORDERED: Iopamidol 125 ML INFUS..BTL ONE (17:14)
--- NOTE | 2019-04-23 17:35 | Event Note ---
Date of Encounter: 04/23/19 Time of Encounter: 17:30 - Cardiology Event Note mLAD DAYNA x 1 for FFR+ EF normal. FFR LCx negative. RCA stent patent
--- NOTE | 2019-04-23 18:10 | Invasive Diagnostic Lab Proc ---
Name: Geovanny Esqueda Date of Study: 04/23/2019 Date: 1965 Ht: 72.0in Medical Record#: [id number] Age: 53 Wt: 229.06lb Gender: Male BSA: 2.26 Order #: [id number] BMI: 31.07 Physicians Procedure Physician: Thomas Redman MD, [facility] Referring MD: Referring MD: Staff Name Position Time In Felicitas Estrada RT (R) Monitor 04:47 PM Meng Manzano RT (R) Scrub 04:47 PM Indications Indication Non-Stemi Procedures Performed Procedure L HRT ARTERY/VENTRICLE ANGIO IV Doppler BLD Flow 1st Vessel IV Doppler BLD Flow Ad'l Vessel PRQ CARD DAYNA STENT W/ANGIO 1 VSL Pre-Procedure Checklist Informed consent is complete signed and on chart. H&P is on chart. ID band is on and ID verified with patient. Patient NPO for procedure The procedure was described for the patient and questions were answered. Blood Pressure: 138/93 ECG is on chart. Rhythm: NSR Plan of Care Patient will tolerate the procedure without complications. Adequate level of comfort will be maintained. Hemodynamics will remain stable Patient will recover from procedure without complications. Respiratory function will be maintained. Cardiac rhythm will remain stable. Patient temperature will be maintained. Patient and/or family have verbalized understanding of the procedure. Patient Education Chief Complaint/Reason for Test: Cardiac Cath Developmental Category: Adult (18-64 years) Developmentally Appropriate for Age: Yes Learning Barriers: None Education Needs: Procedure Education Method: Verbal Information Taught: Cardiac Cath Educational Evaluation: Able to repeat information Intravenous Access Time IV Size Location DC'd Fluid/Drip Rate Units RN 20g 1 08/23" Patent On Arrival Lt Antecubital 0.9NaCl Thomas Toro RN Allergies NKA No Known Allergies Vital Signs Time BP (mmHg) HR (bpm) O2 Sat. RR (bpm) LOC 138 / 93 71 96 % 17 5 = Fully awake and oriented or at pre-proc level 04:46 PM / % 5 = Fully awake and oriented or at pre-proc level 04:46 PM / % 4 = Oriented but drowsy 05:01 PM / % 4 = Oriented but drowsy 04:51 PM 160 / 106 74 98 % 19 Procedural Medications Time Medication Dose Units Method Given By 04:46 PM Oxygen 2 L/min nasal cannula Thomas Toro RN 04:51 PM Versed 2 mg Intravenous Thomas Toro RN 04:52 PM Fentanyl 50 mcg Intravenous Thomas Toro RN 05:00 PM Lidocaine 2% 0.5 ml Subcutaneous Thomas Redman MD, [facility] 05:02 PM Heparin 4000 units Nitroglycerin 2000 mcg Verapamil 2.5 mg Intraarterial Thomas Redman MD, [facility] 05:02 PM Fentanyl 1 mcg Intravenous Thomas Toro RN 05:02 PM Benadryl 50 mg Intravenous Thomas Toro RN 05:12 PM Nitroglycerin 200 mcg Intracoronary Thomas Redman MD 05:13 PM 90mg Adenosine in 90 ml 0.9 NS 873 ml/hr Intravenous Thomas Toro RN 05:32 PM Heparin 2000 units Intravenous Thomas Toro RN 05:36 PM Plavix 600 mg Orally Thomas Toro RN ASA Classification: CLASS II- Mild systemic disease (i.e. well-controlled diabetes, hypertension, asthma, cigarette smoking) Sheree Score Preprocedure Postprocedure Activity 2- Moves 4 extremities sustained head lift Activity 2- Moves 4 extremities sustained head lift Circulation 2- SBP +/= 20 points of pre-anesthetic level Circulation 2- SBP +/= 20 points of pre-anesthetic level Consciousness 2- Awake and alert oriented x 3 Consciousness 2- Awake and alert oriented x 3 O2 Saturation 2- Able to maintain O2 satruation of 92% on room air O2 Saturation 2- Able to maintain O2 satruation of 92% on room air Respiratory 2- Able to deep breathe and cough well Respiratory 2- Able to deep breathe and cough well Total Score 10 Total Score 10 Contrast Agent: Isovue Diagnostic Contrast: 122 ml Total Contrast: 122 ml Fluoro Dose: 27 mGy Activated Clotting Time Time Seconds to Clot 05:19 PM 275 Procedure Log Time Note Enter By 04:46 PM Pt arrived to civil laboratory technician 2 at 16:46 [facility] :46 PM Physician arrived 16:46 [facility] 46 PM Hayden and santino completed [facility] 46 PM Sign in performed according to hospital policy. Informed consent was obtained. PM Time: 16:46 Patient comfortable and pain free: Yes [facility] PM Time: 16:46LOC: 5 = Fully awake and oriented or at pre-proc level [facility] PM Time: 16:46 Oxygen on at 2 L/min per nasal cannula by Thomas Toro RN darren 04:47 PM Felicitas Estrada RT (R) Position: Monitor Time in: 16:47 04:47 PM Meng Manzano RT (R) Position: Scrub Time in: 16:47 04:48 PM CathStat 04:48 PM Vitals capture started with the following parameters, Patient=Adult, Interval=5 min, Initial Wdqqmdvt=836 mmHg, Deflation Rate=3 mmHg, Cuff placed on Right Arm 04:48 PM Procedure start 16:48 04:49 PM ASA Class CLASS II- Mild systemic disease (i.e. well-controlled diabetes, hypertension, asthma, cigarette smoking) jhamil 04:50 PM NIBP STAT measurement started. 04:50 PM Hair removed from procedure site in holding area using clippers. Right wrist and Right groin prepped with Chloraprep by Thomas Toro RN, then patient was draped. Skin intact. 04:51 PM HR=74 bpm, NRIG=280/106 mmhg, SpO2=98.0 %, Resp=19 B/min 04:52 PM Time: 16:51 Versed 2 mg Intravenous Given by Thomas Toro RN darren 04:52 PM Time: 16:52 Fentanyl 50 mcg Intravenous Given by Thomas Toro RN 04:55 PM Pressure channel 1 zeroed. 04:56 PM Patient charges- Angio tray pack, Navilyst 3mm J, Pulse Oximetry and ACIST tubing and transducer 05:00 PM Time out was performed according to hospital policy. Conscious sedation and anesthesia was achieved (see medication log with in this report above) 05: PM Time: 17:00 .5 ml Lidocaine 2% to right radial Subcutaneous Given by Thomas Redman MD, [facility] 05:01 PM Time: 16:46LOC: 4 = Oriented but drowsy 05:01 PM Time: 16:46 Patient comfortable and pain free: Yes 05:02 PM Access obtained by percutaneous puncture. 5/6Fr 10cm Terumo Glidesheath sheath placed in right Radial artery. [id number] 05:02 PM Time: 17:02 Patient given 4,000 units Heparin, 2000 mcg Nitroglycerin, and 2.5 mg Verapamil Intraarterial by Thomas Redman MD, [facility]. This is given to reduce risk of vessel spasm and thrombosis. amil 05:02 PM Time: 17:02 Fentanyl 1 mcg Intravenous Given by Thomas Toro RN amil 05:02 PM Time: 17:02 Benadryl 50 mg Intravenous Given by Thomas Toro RN amil 05:02 PM 0.035 260cm Navilyst 3mmJ wire [id number] amil 05:02 PM 5Fr TIG catheter inserted over the wire [facility] jhamil 05:03 PM Recorded Pressure: Ao, HR=75, Condition=Condition 1 (Aorta) Ao 57/47/52 05:03 PM LCA angiography performed in multiple views. jhamilton 05:04 PM Pressure channel 1 zeroed. 05:05 PM RCA angiography performed in multiple views. jhamilton 05:05 PM Recorded Pressure: Ao, HR=78, Condition=Condition 1 (Aorta) Ao 66/50/55 05:05 PM Recorded Pressure: Ao, HR=76, Condition=Condition 1 (Aorta) Ao 89/78/84 05:06 PM Catheter removed amil 05:06 PM 5Fr Pigtail catheter inserted over the wire [facility] amil 05:07 PM Catheter crossed the aortic valve and was selectively placed in the left ventricle. Pressures recorded on pullback for left heart catheterization. jhamilton 05:08 PM Recorded Pressure: LV, HR=82, Condition=Condition 1 (Left Ventricle) LV 124/6/14 05:08 PM Bolus angiogram of left Ventricle complete: 10 ml/sec for a total of 20 mls jhamilton 05:08 PM Recorded Pressure: LV, Ao, HR=77, Condition=Condition 1 (Left Ventricle) LV ?/?/?, (Aorta) Ao 106/48/73 05:09 PM Catheter removed amil 05:10 PM 6Fr CLS 3.0 Runway guide catheter was used to cannulate the PCI vessel successfully. reused? No jhamilton 05:11 PM .014 Choice Extra Support 300cm guide wire across target lesion- successful. reused? No jhamilton 05:11 PM Asist FFR Catheter advanced to target lesion. amilton 05:12 PM Time: 17:12 Nitroglycerin 200 mcg Intracoronary Given by Thomas Redman MD amil 05:13 PM Time: 17:13 90mg Adenosine in 90 ml 0.9 NS 873 ml/hr Intravenous Given by Thomas Toro RN Plascencia pump jhamilton 05:17 PM Time: 17:01 Patient comfortable and pain free: Yes jhamilton 05:17 PM Time: 17:01LOC: 4 = Oriented but drowsy jhamilton 05:18 PM Pressure channel 4 equalized to channel 1. 05:19 PM At 17:19 the ACT was 275 seconds. jhamilton 05:19 PM IFR=1 in Circ. jhamilton 05:19 PM FFR: Site=CIRC Prox, Condition=Condition 1, Device=VOLCANO PRIME WIRE 05:19 PM Recorded Pressure: Ao, Wire, HR=83, Condition=Condition 1 (Aorta) Ao ?/?/?, (FFR Wire) Wire ?/?/? 05:20 PM FFR in LAD at this time. jhamilton 05:22 PM Flow Wire/Catheter removed intact jhamilton 05:22 PM Adenosine stopped at this time. Ran for a total of 3 minutes. jhamilton 05:22 PM FFR Measurement: 0.79 jhamilton 05:23 PM Inflation device was opened. jhamilton 05:24 PM 3.0mm x 12mm Synergy drug-eluting stent across target lesion- successful Lot #[id number] jhamilton 05:25 PM Lesion found in Distal LAD. Pre Stenosis: 90 Pre ROGE Flow: jhamilton 05:25 PM Stent deployed @ 13 quyen for 21 seconds jhamilton 05:26 PM Started Adenosine again, same rate as previous. jhamilton 05:26 PM Asist FFR Catheter advanced to target lesion. jhamilton 05:27 PM Pressure channel 4 equalized to channel 1. 05:27 PM FFR: Site=CIRC Prox, Condition=Condition 1, Device=VOLCANO PRIME WIRE 05:27 PM Recorded Pressure: Ao, Wire, HR=82, Condition=Condition 1 (Aorta) Ao ?/?/?, (FFR Wire) Wire ?/?/? 05:28 PM Adenosine stopped at this time. Ran for 2 minutes. jhamilton 05:28 PM FFR Measurement: 0.87 jhamilton 05:29 PM Flow Wire/Catheter removed intact jhamilton 05:29 PM Guide wire removed intact. jhamilton 05:29 PM Guide catheter removed intact. jhamilton 05:30 PM Lesion found in Mid LAD. Pre Stenosis: 50 Pre ROGE Flow: jhamil 05:30 PM Lesion found in Proximal LAD. Pre Stenosis: 40 Pre ROGE Flow: amil 05:31 PM Lesion found in Proximal Circumflex. Pre Stenosis: 60 Pre ROGE Flow: jhamil 05:32 PM Procedure completed at 17:31 04/23/2019 05:32 PM Coronary Dominance: right 05:32 PM Time: 17:32 Heparin 2000 units Intravenous Given by Thomas Toro RN 05:32 PM Did you address ROGE flow and Dominance? YesCoronary Dominance: right 05:33 PM Sign out completed: Radiation Dose 278 mGy, 26.7 Gy/cm2 Fluoro Time: 7.2 Isovue 370 - 200ml contrast 122 ml given by Thomas Redman MD, [facility]. Complications: None. 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 Sedation minutes 28. Cardiac Rehab Consult needed: Yes. Confirmed administered medications: Yes 05:33 PM Isovue 370 - 200ml,2 Bottle(s) used. amil 05:34 PM Arterial sheath pulled, Vasc Band closure device used and was Successful S/N. 05:34 PM 12 ml air in Vasc Band. amil 05:34 PM Estimated Blood Loss: less than 20cc amil 05:34 PM Post ECG NSR amil 05:34 PM Post Blood Pressure 160/106 jhamil 05:34 PM 17:34 Post Pulses Bilateral radial 2+ amil 05:35 PM Information taught Cardiac Cath, PCI, and Vasc Band amil 05:35 PM Education needs Procedure, Plan of Care, and Responsibilities of Patient in Care amil 05:35 PM Learning barriers :None amil 05:35 PM Education Methods Verbal amil 05:35 PM Education evaluation Able to repeat information amil 05:35 PM Site status No bleeding/ No Hematoma - Rt radial as reported by Meng Manzano RT (R) at 17:35 jhamil 05:35 PM Opsite applied amil 05:36 PM Report given to 3B RN Pt taken to Room #64. 17:36 darren 05:36 PM Time: 17:36 Plavix 600 mg Orally Given by Thomas Toro RN darren 05:39 PM Plavix, Effient or Brilinta given Yes 05:39 PM Patient out of room: 17:39 [facility] 05:39 PM Family placed in consult room. 05:39 PM Complications: None [facility] 06:01 PM Proximal Left Anterior Descending Coronary Artery with 40% stenosis. If graft is supplying this territory, 0 % stenosis. [facility] 06:01 PM Mid/Distal Left Anterior Descending Coronary Artery and diagonal branches with 90% stenosis. If graft is supplying this area, 0 % stenosis [facility] 06:02 PM Circumflex, Obtuse Marginal, Left Posterior Descending, and Left Posterolateral Coronary Arteries with 60 % stenosis. If graft is supplying this area, 0 % [facility] Complications Complication None None Hemodynamics Pressures Site Systolic/A Wave Diastolic/V Wave Mean AO 57 47 52 AO 66 50 55 AO 89 78 84 LV 124 6 14 LV AO 106 48 73 AO Wire AO Wire Post Procedure Information Blood Pressure: 160/106 mmHg Rhythm: NSR Post procedural instructions were given Closure Device Time Device Success/Fail 04/23/2019 5:35:00 PM Mechanical Compression Successful Site Checks Time Location Status Staff Sheath In? Note 05:35 PM Rt Wrist No bleeding/ No Hematoma Meng Manzano RT (R) Pulses Time Site Pre-Procedure Post-Procedure Note Bilateral DP 2+ Bilateral radial 2+ 5:34:00 PM Bilateral radial 2+ Updated by Felicitas Estrada, RT (R) on 04/23/2019 6:03:39 PM electronically signed on 04/23/2019 6:04:45 PM with status of Final
[2019-04-23] MEDS: Venlafaxine XR (24 HR) 37.5 MG CAP.ER.24H PO SCH (20:26)
[2019-04-23] MEDS: Dextroamphetamine/Amphetamine [Adderall 30 Mg Tablet] PO SCH (20:26)
[2019-04-24 05:39] LABS: Acinetobacter baumannii by PCR Not Detected (Not Detect); Candida albicans by PCR Not Detected (Not Detect); Candida glabrata by PCR Not Detected (Not Detect); Candida krusei by PCR Not Detected (Not Detect); Candida parapsilosis by PCR Not Detected (Not Detect); Candida tropicalis by PCR Not Detected (Not Detect); Enterobacter cloacae Cmplx PCR Not Detected (Not Detect); Enterobacteriaceae by PCR Not Detected (Not Detect); Enterococcus by PCR Not Detected (Not Detect); Escherichia coli by PCR Not Detected (Not Detect); Klebsiella oxytoca by PCR Not Detected (Not Detect); Klebsiella pneumoniae by PCR Not Detected (Not Detect); Proteus by PCR Not Detected (Not Detect); Pseudomonas aeruginosa by PCR Not Detected (Not Detect); Serratia marcescens by PCR Not Detected (Not Detect); Staphylococcus aureus by PCR Not Detected (Not Detect); Staphylococcus by PCR Not Detected (Not Detect); Streptococcus agalactiae(B)PCR Not Detected (Not Detect); Streptococcus by PCR Not Detected (Not Detect); Streptococcus pneumoniae PCR Not Detected (Not Detect); Streptococcus pyogenes (A) PCR Not Detected (Not Detect); blaKPC Carbapenem-Resist Gene Not Detected (Not Detect); mecA Methicillin-Resist Gene Not Detected (Not Detect); vanA/B Vancomycin-Resist Genes Not Detected (Not Detect)
--- NOTE | 2019-04-24 08:15 | Cardiology Progress Note ---
<Cami Bruce - Last Filed: 04/24/19 10:22> Date of Encounter: 04/24/19 Time of Encounter: 09:47 Assessment and Plan (1) NSTEMI (non-ST elevated myocardial infarction) Current Visit: Yes Status: Acute Patient had mildly elevated troponins 0.06 > 0.04 > 0.03. -Underwent cardiac catheterization yesterday afternoon with 1 x DAYNA in LAD -Right radial site of cardiac catheterization appears to be healing well -Counseled patient to avoid lifting more than 5 lbs with right arm for one week, driving for 2-3 days, and submersion of right wrist for one week. -Discussed with him that using a push or riding shot dropper may also be contraindicated for one week. -Patient is on ASA and clopidogrel currently for home medications -Counseled patient that he must not skip dose of these medications for a year, as this will raise risk the stent will fail. -LFTs today were all within normal limits, with AST and ALT of 14 and 16, respectively. -Atorvastatin has been added to medications starting tonight -Home medications already include beta-mu -LFTs should be repeated in about three months -Cardiac rehab has been consulted. -Cardiology is signing off at this time. (2) Essential hypertension Current Visit: No Status: Chronic Patient's blood pressure was elevated yesterday -since resumption of metoprolol, BP is now in normal range. Discussion w patient/family: The assessment and plan as outlined above was discussed with the patient and/or family members who expressed understanding and agreement. All questions were answered. Thank you for involving us in the care of your patient. Please call with any questions. Subjective Interval history: Patient denies baseline chest pain now though still admits to some chest pain on deep inspiration. He feels much better overall. Objective Vital Signs, Last 4 Hours Temp Pulse Resp BP Pulse Ox 04/24/19 07:31 97.5 F L 66 16 118/76 97 Other: GENERAL: alert, answers questions appropriately. Pleasant EYES: anicteric, clear sclerae, pupils equal and reactive to light bilaterally HENT: normocephalic, atraumatic. Moist mucosa NECK: no carotid bruits heard CV: regular rate and rhythm, no murmurs RESPIRATORY: clear to auscultation bilaterally, no rhonchi GI: soft, nontender, nondistended. Normal bowel sounds EXTREMITIES: radial site of LHC is clean, dry, nonerythematous. Peripheral pulses 2+/4. No edema or cyanosis noted. Results 04/23/19 05:43 04/23/19 05:43 - Imaging and Cardiology Cardiac cath: report reviewed Consult Discharge Plan - Plan Referrals: Negin Lock MD [Primary Care Provider] - Prescriptions: Aspirin 81 mg PO DAILY #180 tab.chew Loratadine [Claritin] 10 mg PO DAILY #90 capsule Venlafaxine XR (24 HR) [Effexor XR] 37.5 mg PO BID #180 cap.er.24h Tamsulosin HCl [Flomax] 0.4 mg PO DAILY #90 capsule Atorvastatin [Lipitor] 80 mg PO HS #90 tablet Metoprolol [Lopressor] 100 mg PO BID #180 tablet Melatonin 10 mg PO HS #90 capsule Gabapentin [Neurontin] 800 mg PO BID #180 tablet Esomeprazole Magnesium [Nexium] 40 mg PO BID #180 capsule. Clopidogrel [Plavix] 75 mg PO DAILY #90 tablet carBAMazepine [Tegretol] 400 mg PO BID #180 tablet Cyanocobalamin (Vitamin B-12) [Vitamin B12] 2,000 mcg PO DAILY #180 tablet Bupropion HCl [Wellbutrin Xl] 300 mg PO QAM #90 tab.er.24h <Eryn Read - Last Filed: 04/24/19 13:47> Date of Encounter: 04/24/19 Assessment and Plan (1) NSTEMI (non-ST elevated myocardial infarction) Current Visit: Yes Status: Resolved Patient had mildly elevated troponins 0.06 > 0.04 > 0.03. -Underwent cardiac catheterization yesterday afternoon with 1 x DAYNA in LAD -Right radial site of cardiac catheterization appears to be healing well -Counseled patient to avoid lifting more than 5 lbs with right arm for one week, driving for 2-3 days, and submersion of right wrist for one week. -Discussed with him that using a push or riding shot dropper may also be c ontraindicated for one week. -Patient is on ASA and clopidogrel currently for home medications -Counseled patient that he must not skip dose of these medications for a year, as this will raise risk the stent will fail. -LFTs today were all within normal limits, with AST and ALT of 14 and 16, respectively. -Atorvastatin has been added to medications starting tonight -Home medications already include beta-mu -LFTs should be repeated in about three months -Cardiac rehab has been consulted. -Cardiology is signing off at this time. I examined this patient and my medical decision-making was reviewed with the Resident Physician. I agree with the documented findings, disposition and treatment plan as described except to the extent set forth below. 53-year-old male presents with non-ST elevation myocardial infarction with peak troponin 0.06 status post-PCI to the mid LAD, continue to optimize medical management. Discussion w patient/family: The assessment and plan as outlined above was discussed with the patient and/or family members who expressed understanding and agreement. All questions were answered. Thank you for involving us in the care of your patient. Please call with any questions. Objective Vital Signs, Last 4 Hours Temp Pulse Resp Pulse Ox 04/24/19 11:11 97.7 F 73 16 97 Results 04/23/19 05:43 04/23/19 05:43 Lab Results 04/24/19 09:27 Total Bilirubin 0.3 AST 14 ALT 16 Alkaline Phosphatase 66
[2019-04-24] MEDS: Gabapentin 400 MG CAPSULE PO SCH ×2 (08:44→20:17)
[2019-04-24] MEDS: BuPROPion XL (24 HR) 150 MG TABLET PO SCH (08:44)
[2019-04-24] MEDS: Aspirin 81 MG TAB.CHEW PO SCH (08:45)
[2019-04-24] MEDS: Metoprolol 100 MG TABLET PO SCH ×2 (08:45→20:17)
[2019-04-24] MEDS: Venlafaxine XR (24 HR) 37.5 MG CAP.ER.24H PO SCH ×2 (08:45→20:17)
[2019-04-24] MEDS: Cyanocobalamin (B-12) 1,000 MCG TABLET PO SCH (08:46)
[2019-04-24] MEDS: Loratadine 10 MG TABLET PO SCH (08:46)
[2019-04-24] MEDS: carBAMazepine 200 MG TABLET PO SCH ×2 (08:46→20:17)
[2019-04-24] MEDS: Dextroamphetamine/Amphetamine [Adderall 30 Mg Tablet] PO SCH ×2 (08:48→20:17)
[2019-04-24 10:04] LABS: Albumin 4.1 g/dL (3.5-5.7); Albumin/Globulin Ratio 1.6 (1.1-2.2); Bilirubin,Direct 0.1 mg/dL (0.0-0.2); Bilirubin,Indirect 0.2 mg/dL (0.0-1.2); Bilirubin,Total 0.3 mg/dL (0.3-1.0); Globulin 2.6 g/dL (2.4-3.5); Total Protein 6.7 g/dL (6.4-8.9)
[2019-04-24] MEDS ORDERED: Adenosine 90 MG/30 ML MLS IV ONE (11:04)
--- NOTE | 2019-04-24 11:32 | Electrocardiograph Report ---
[place] [facility] Test Date: 2019-04-22 Pat Name: Geovanny Esqueda Department: 104 Room: 3B64 Gender: M Solutions Manager: : 1965 Requested By: Salvador Hager Order Number: [id number] Reading MD: Matt Oneal Measurements Intervals Paige Rate: 120 P: 31 NC: 180 QRS: 8 QRSD: 107 T: 44 QT: 316 QTc: 387 Interpretive Statements SINUS TACHYCARDIA POSSIBLE ANTEROLATERAL MYOCARDIAL INFARCTION, PROBABLY OLD ABNORMAL RHYTHM ECG Electronically Signed On 04-24-2019 11:30:50 EDT by Matt Oneal
--- NOTE | 2019-04-24 11:45 | Internal Med Progress Note ---
Hospitalist Progress Note - Encounter Date of Encounter: 04/24/19 Time of Encounter: 10:10 - Subjective Interval History: No major events overnight. Patient was seen this a.m. He denied fever, chills or night sweats. He has no nausea, vomiting or abdominal pain. Patient denied chest pain, shortness of breath or palpitation. - Exam Vitals: Temp Pulse Resp BP Pulse Ox 97.7 F 73 16 118/76 97 04/24/19 11:11 04/24/19 11:11 04/24/19 11:11 04/24/19 07:31 04/24/19 11:11 Exam: General: Ill-appearing and in no acute distress HEENT: No erythema of posterior pharynx. No exudates. Lymphatics: No mandibular or cervical lymphadenopathy Cardiovascular: RRR. No murmurs. No chest wall tenderness. Lungs: Clear to auscelltation bilaterally. Regular chest rise. Abdomen: Non-tender. No rebound or gaurding. Nl bowel sounds. Extremities: No edema. 2+ pulses radial and pedal pulses Skin: No rahses, abrasions, or contusions. Nl cap refill. Psych: Nl attention. 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 5/5 strength. Sensation to light touch and pinprick intact. - Assessment and Plan (1) NSTEMI (non-ST elevated myocardial infarction) Current Visit: Yes Status: Resolved (2) CAD (coronary artery disease) Current Visit: Yes Status: Resolved (3) Sinus tachycardia Current Visit: Yes Status: Resolved (4) Essential hypertension Current Visit: No Status: Chronic - Summary of Assessment and Plan Summary of Assessment and Plan: 53-year-old male with history of CAD status post PCI, ADHD, bipolar disorder who came into the hospital due to chest pain. His symptoms are managed as following: NSTEMI: S/P DAYNA in mid LAD. Continue DAPT, BB, Lipitor. Cardiology is consulted, plans for left heart catheterization. GPC bactermia: Likely contamination, patient is afebrile, has no leukocytosis. Repeat BCx ordered. HTN: Controlled. continue BB. bipolar disorder: Continue home medication ADHD: Continue home medication DVT prophylaxis:sc heparin - Time Spent with Patient Total time spent is greater than 50% in coordination of care (as documented) at patient's floor/unit and/or counseling patient: Internal Medicine: Result - Labs CBC & Chem 7: 04/23/19 05:43 04/23/19 05:43 Labs: Liver Function 04/24/19 Range/Units 09:27 Total Bilirubin 0.3 (0.3-1.0) mg/dL Direct Bilirubin 0.1 (0.0-0.2) mg/dL AST 14 (13-39) Units/L ALT 16 (7-52) Units/L Alkaline Phosphatase 66 (34-104) Units/L Albumin 4.1 (3.5-5.7) g/dL - ABG Interpretation ABG results: PT/INR, D-dimer PT 10.3 Seconds (9.4-12.1) 04/22/19 16:06 D-Dimer 294 ng/mLFEU (0-500) 04/22/19 16:06 Consult Discharge Plan - Plan Referrals: Negin Lock MD [Primary Care Provider] - (2) CAD (coronary artery disease) Qualifiers: Coronary Disease-Associated Artery/Lesion type: [place] artery [place] vs. transplanted heart: [place] heart Associated angina: without angina Qualified Code(s): I25.10 - Atherosclerotic heart disease of [place] coronary artery without angina pectoris
[2019-04-24] MEDS: Acetaminophen 325 MG TABLET PO PRN (16:05)
[2019-04-24] MEDS: *HR* Heparin 5,000 UNIT/ML VIAL SQ SCH (17:58)
[2019-04-24] MEDS: diazePAM 5 MG TABLET PO PRN (23:23)
[2019-04-25 04:57] LABS: Hematocrit 40.8 % (37.5-50.1); Hemoglobin 13.5 g/dL (12.9-16.9); Mean Corpuscular HGB Conc 33.1 g/dL (31.6-35.5); Mean Corpuscular Hemoglobin 29.9 pg (28.0-33.3); Mean Corpuscular Volume 90.3 fL (83.0-100.0); Mean Platelet Volume 9.5 fL (9.4-12.4); Platelet Count 215 K/mcL (140-400); Red Blood Count 4.52 M/mcL (4.19-5.50); Red Cell Distribution Width 14.4 % (11.5-14.5); White Blood Count 4.8 K/mcL (4.3-11.1)
[2019-04-25] MEDS: *HR* Heparin 5,000 UNIT/ML VIAL SQ SCH ×2 (06:49→17:06)
[2019-04-25] MEDS: Cyanocobalamin (B-12) 1,000 MCG TABLET PO SCH (09:07)
[2019-04-25] MEDS: Venlafaxine XR (24 HR) 37.5 MG CAP.ER.24H PO SCH ×2 (09:07→19:56)
[2019-04-25] MEDS: Metoprolol 100 MG TABLET PO SCH ×2 (09:07→19:57)
[2019-04-25] MEDS: Loratadine 10 MG TABLET PO SCH (09:07)
[2019-04-25] MEDS: BuPROPion XL (24 HR) 150 MG TABLET PO SCH (09:07)
[2019-04-25] MEDS: Aspirin 81 MG TAB.CHEW PO SCH (09:08)
[2019-04-25] MEDS: carBAMazepine 200 MG TABLET PO SCH ×2 (09:08→19:57)
[2019-04-25] MEDS: Dextroamphetamine/Amphetamine [Adderall 30 Mg Tablet] PO SCH ×2 (09:08→19:57)
[2019-04-25] MEDS: Gabapentin 400 MG CAPSULE PO SCH ×2 (09:08→19:57)
--- NOTE | 2019-04-25 13:43 | Internal Med Progress Note ---
Hospitalist Progress Note - Encounter Date of Encounter: 04/25/19 Time of Encounter: 10:55 - Subjective Interval History: No major events overnight. Patient was seen this a.m. He denied fever, chills or night sweats. He has no nausea, vomiting or abdominal pain. Patient denied chest pain, shortness of breath or palpitation. - Exam Vitals: Temp Pulse Resp BP Pulse Ox 98.0 F 67 18 120/73 94 04/25/19 11:11 04/25/19 11:11 04/25/19 11:11 04/25/19 11:11 04/25/19 11:11 Exam: General: Ill-appearing and in no acute distress HEENT: No erythema of posterior pharynx. No exudates. Lymphatics: No mandibular or cervical lymphadenopathy Cardiovascular: RRR. No murmurs. No chest wall tenderness. Lungs: Clear to auscelltation bilaterally. Regular chest rise. Abdomen: Non-tender. No rebound or gaurding. Nl bowel sounds. Extremities: No edema. 2+ pulses radial and pedal pulses Skin: No rahses, abrasions, or contusions. Nl cap refill. Psych: Nl attention. A&Ox3 Neuro: manager business continuity II-XII intact. 5/5 strength. Sensation to light touch and pinprick intact. - Assessment and Plan (1) NSTEMI (non-ST elevated myocardial infarction) Current Visit: Yes Status: Resolved (2) CAD (coronary artery disease) Current Visit: Yes Status: Resolved (3) Sinus tachycardia Current Visit: Yes Status: Resolved (4) Essential hypertension Current Visit: No Status: Chronic - Summary of Assessment and Plan Summary of Assessment and Plan: 53-year-old male with history of CAD status post PCI, ADHD, bipolar disorder who came into the hospital due to chest pain. His symptoms are managed as following: NSTEMI: S/P DAYNA in mid LAD. Continue DAPT, BB, Lipitor. GPC bactermia: Likely contamination, patient is afebrile, has no leukocytosis. Repeat BCx are still negative. HTN: Controlled. continue BB. bipolar disorder: Continue home medication ADHD: Continue home medication DVT prophylaxis:sc heparin - Time Spent with Patient Total time spent is greater than 50% in coordination of care (as documented) at patient's floor/unit and/or counseling patient: Plan of Care Discussed with: patient Internal Medicine: Result - Labs CBC & Chem 7: 04/25/19 04:27 04/23/19 05:43 Labs: Short CBC 04/25/19 Range/Units 04:27 WBC 4.8 (4.3-11.1) K/mcL Hgb 13.5 (12.9-16.9) g/dL Hct 40.8 (37.5-50.1) % Plt Count 215 (140-400) K/mcL - ABG Interpretation ABG results: PT/INR, D-dimer PT 10.3 Seconds (9.4-12.1) 04/22/19 16:06 D-Dimer 294 ng/mLFEU (0-500) 04/22/19 16:06 Consult Discharge Plan - Plan Referrals: Negin Lock MD [Primary Care Provider] - 05/01/19 2:00 pm (2) CAD (coronary artery disease) Qualifiers: Coronary Disease-Associated Artery/Lesion type: [place] artery [place] vs. transplanted heart: [place] heart Associated angina: without angina Qualified Code(s): I25.10 - Atherosclerotic heart disease of [place] coronary artery without angina pectoris
[2019-04-25] MEDS: diazePAM 5 MG TABLET PO PRN (21:51)
[2019-04-26] MEDS: *HR* Heparin 5,000 UNIT/ML VIAL SQ SCH (05:34)
--- NOTE | 2019-04-26 08:12 | Discharge Summary ---
- NOTES TO OUTPATIENT PROVIDER Notes to Outpatient Provider: Patient was admitted for chest pain and he got stent placed in LAD. His medication was refilled for 1 month by [facility]or given the lack of insurance. Follow-up with outpatient cardiology is recommended. Orders not resulted at time of discharge: Pending orders 04/22/19 16:00 Culture,Blood [BC] Stat 04/24/19 09:03 Culture,Blood [BC] Stat Date of Encounter: 04/26/19 Time of Encounter: 07:50 - Discharge Diagnosis (1) NSTEMI (non-ST elevated myocardial infarction) Priority: Primary Status: Resolved (2) CAD (coronary artery disease) Priority: Secondary Status: Resolved Qualifiers: Coronary Disease-Associated Artery/Lesion type: [place] artery [place] vs. transplanted heart: [place] heart Associated angina: without angina Qualified Code(s): I25.10 - Atherosclerotic heart disease of [place] coronary artery without angina pectoris (3) Sinus tachycardia Priority: Secondary Status: Resolved (4) Essential hypertension Priority: Secondary Status: Chronic Hospital course: 53-year-old male with history of CAD status post PCI, ADHD, bipolar disorder who is managed for NSTEMI with successful stent placement in mid LAD. He was started on DAPT. He had one positive blood culture out of 4 which was a contaminant. Patient remained afebrile, hemodynamically stable and had no leukocytosis. Along with the help of social media marketing analyst, we were able to refill his medication for 1 month by [facility]. Today, he is afebrile, hemodynamically stable and he will be discharged home in stable condition. Follow-up with cardiology as recommended. Discharge discussed with: patient - Time Spent with Patient Total time spent providing and/or coordinating discharge services: 42 minutes - Discharge Medications Prescriptions: New Aspirin 81 mg PO DAILY #180 tab.chew Atorvastatin [Lipitor] 80 mg PO HS #90 tablet Metoprolol [Lopressor] 100 mg PO BID #180 tablet Clopidogrel [Plavix] 75 mg PO DAILY #90 tablet Continued Aspirin 81 mg PO DAILY #30 tab.chew diazePAM [Valium] 5 mg PO BID Dextroamphetamine/Amphetamine [Adderall 30 mg Tablet] 30 mg PO BID Loratadine [Claritin] 10 mg PO DAILY #90 capsule Venlafaxine XR (24 HR) [Effexor XR] 37.5 mg PO BID #180 cap.er.24h Tamsulosin HCl [Flomax] 0.4 mg PO DAILY #90 capsule Melatonin 10 mg PO HS #90 capsule Gabapentin [Neurontin] 800 mg PO BID #180 tablet Esomeprazole Magnesium [Nexium] 40 mg PO BID #180 capsule. carBAMazepine [Tegretol] 400 mg PO BID #180 tablet Cyanocobalamin (Vitamin B-12) [Vitamin B12] 2,000 mcg PO DAILY #180 tablet Bupropion HCl [Wellbutrin Xl] 300 mg PO QAM #90 tab.er.24h Discontinued Metoprolol Succinate [Toprol Xl] 100 mg PO BID Home Medications: Aspirin 81 mg PO DAILY #30 tab.chew 02/16/16 [Rx] diazePAM [Valium] 5 mg PO BID 04/22/19 [History] Dextroamphetamine/Amphetamine [Adderall 30 mg Tablet] 30 mg PO BID 04/23/19 [History] Aspirin 81 mg PO DAILY #180 tab.chew 04/24/19 [Rx] Atorvastatin [Lipitor] 80 mg PO HS #90 tablet 04/24/19 [Rx] Bupropion HCl [Wellbutrin Xl] 300 mg PO QAM #90 tab.er.24h 04/24/19 [Rx] Clopidogrel [Plavix] 75 mg PO DAILY #90 tablet 04/24/19 [Rx] Cyanocobalamin (Vitamin B-12) [Vitamin B12] 2,000 mcg PO DAILY #180 tablet 04/24/19 [Rx] Esomeprazole Magnesium [Nexium] 40 mg PO BID #180 capsule. 04/24/19 [Rx] Gabapentin [Neurontin] 800 mg PO BID #180 tablet 04/24/19 [Rx] Loratadine [Claritin] 10 mg PO DAILY #90 capsule 04/24/19 [Rx] Melatonin 10 mg PO HS #90 capsule 04/24/19 [Rx] Metoprolol [Lopressor] 100 mg PO BID #180 tablet 04/24/19 [Rx] Tamsulosin HCl [Flomax] 0.4 mg PO DAILY #90 capsule 04/24/19 [Rx] Venlafaxine XR (24 HR) [Effexor XR] 37.5 mg PO BID #180 cap.er.24h 04/24/19 [Rx] carBAMazepine [Tegretol] 400 mg PO BID #180 tablet 09/05/19 [Rx] Allergies/Adverse Reactions: Allergy/AdvReac Type Severity Reaction Status Date / Time No Known Allergies Allergy Verified 04/22/19 17:55 Date of admission: 04/24/19 15:04 Primary care physician: Negin Lock MD Consults: 04/22/19 18:24 Consult to Cardiology [CONS] Routine Comment: Consulting Provider: Cardiology Fatimah Reason for Consult: NSTEMI Call Completed: No 04/24/19 08:12 Consult to Cardiac Rehabilitation-Phase1 [CONS] Routine Comment: Reason for Consult: Recent C with stent placed Call Completed: No - Constitutional Vitals: Temp Pulse Resp BP Pulse Ox 97.9 F 71 16 111/70 94 04/26/19 03:57 04/26/19 03:57 04/26/19 03:57 04/26/19 03:57 04/26/19 03:57 Exam: General: Alert and oriented 3, no distress HEENT: No erythema of posterior pharynx. No exudates. Lymphatics: No mandibular or cervical lymphadenopathy Cardiovascular: RRR. No murmurs. No chest wall tenderness. Lungs: Clear to auscelltation bilaterally. Regular chest rise. Abdomen: Non-tender. No rebound or gaurding. Nl bowel sounds. Extremities: No edema. 2+ pulses radial and pedal pulses Skin: No rahses, abrasions, or contusions. Nl cap refill. Psych: Nl attention. A&Ox3 Neuro: vaccine specialist II-XII intact. 5/5 strength. Sensation to light touch and pinprick intact. - Patient Status Disposition: Home, Self-Care Condition: Good Functional capacity at discharge: independent ambulation Overall status at discharge: patient is back to baseline - Discharge Instructions Follow Up With: Negin Lock MD [Primary Care Provider] - 05/01/19 2:00 pm Eryn Read [Partnered Physician] - - Diet and Activity Activity: increase activity as tolerated Diet: diabetic diet, low salt diet
[2019-04-26 08:13] VITALS: BP 127/83
[2019-04-26] MEDS: Aspirin 81 MG TAB.CHEW PO SCH (09:05)
[2019-04-26] MEDS: Gabapentin 400 MG CAPSULE PO SCH (09:05)
[2019-04-26] MEDS: BuPROPion XL (24 HR) 150 MG TABLET PO SCH (09:05)
[2019-04-26] MEDS: Cyanocobalamin (B-12) 1,000 MCG TABLET PO SCH (09:05)
[2019-04-26] MEDS: Metoprolol 100 MG TABLET PO SCH (09:05)
[2019-04-26] MEDS: carBAMazepine 200 MG TABLET PO SCH (09:05)
[2019-04-26] MEDS: Dextroamphetamine/Amphetamine [Adderall 30 Mg Tablet] PO SCH (09:07)
== END 2019-04-26 11:05 | disposition home or self-care (01) | DRG 247 ==
LOC: 3BNU 15:40 → EMEROOARM 15:40 → SUATTDRO 17:17 → 3BNU 18:28
PROVIDERS: ADMIT Internal Medicine; ATTEND Internal Medicine